=== PATIENT | female | born 1950 | race Caucasian/White ===

== ENCOUNTER → 2024-04-30 12:50 | Outpatient (REF) | payer MEDICARE, OTHER, SELFPAY | LOC: WDC 12:50 | PROVIDERS: ATTENDING PHYSICIAN Internal Medicine | DX: Z12.31 Encounter for screening mammogram for malignant neoplasm of breast (principal) | CPT/HCPCS: 77063; 77067 ==

== ENCOUNTER → 2025-04-28 14:20 | Outpatient (REF) | payer MEDICARE, OTHER, SELFPAY | LOC: WDC 14:20 | PROVIDERS: ATTENDING PHYSICIAN Obstetrics & Gynecology Gynecology; FAMILY PHYSICIAN Internal Medicine | DX: Z12.31 Encounter for screening mammogram for malignant neoplasm of breast (principal) | CPT/HCPCS: 77063; 77067 ==

== ENCOUNTER 2025-07-27 07:10 | Emergency (ER) | payer MEDICARE, OTHER, SELFPAY ==
[2025-07-27 07:11] VITALS: BP 218/102
[2025-07-27 07:24] VITALS: BMI 31.5
--- NOTE | 2025-07-27 07:48 | ED.GENMED ---
History of Present Illness
General
Chief Complaint: Facial Problem
Source: patient
Exam Limitations: none
Time Seen by Provider: 07/27/25 07:17
History of Present Illness
History of Present Illness:
74-year-old female not anticoagulated fell down the steps today. She was wearing glasses at the time and the glasses broke but part of her glasses are still stuck in her face. She does not think she lost conscious. She notes bilateral shoulder
and right thigh pain as well. She denies any significant neck back or chest pain. No other complaints at this time
Past History
Past History
ED Past Medical History: GERD, HTN and Hypercholesterolemia
ED Past Surgical History: None
Social History
Tobacco: Non-smoker
Personal:
Living: with family
Phy Exam
Physical Exam
Physical Exam:
General: Well-appearing female no acute respiratory distress
HEENT normal cephalic ragged laceration right lateral eyebrow with foreign body in the wound laceration measures about 3 cm in total length. Pupils equal round react to light no hyphema extraocular motions intact
Heart: Regular rate and rhythm
Lungs: Clear no wheeze
Musculoskeletal exam: Patient is slightly tender to bilateral shoulders and right anterior thigh.
Neurologic exam: Alert and oriented conversing appropriately
Course
Orders/Labs/Results
Orders:
Orders
07/27/25 07:30
CT Head W/o Iv Contrast Urgent
Comment:
Reason For Exam: fall
Cervical Spine wo Contrast CT [CT Cervical Spine W/o Iv Contr] Urgent
Comment:
Reason For Exam: fall
07/27/25 07:47
CR Femur - Right Min 2 Vw Urgent
Comment:
Reason For Exam: fall
CR Shoulder, Trauma - Left Urgent
Comment:
Reason For Exam: fall
CR Shoulder, Trauma - Right Urgent
Comment:
Reason For Exam: fall
07/27/25 09:14
CR Ribs-right 3 Vw W/pa Chest* Urgent
Comment:
Reason For Exam: fall
Vital Signs
Initial and Last Documented VS:
Initial Vital Signs
Temp Pulse Resp BP Pulse Ox
98.1 F 63 16 218/102 97
07/27/25 07:11 07/27/25 07:11 07/27/25 07:11 07/27/25 07:11 07/27/25 07:11
Last Documented Vital Signs
Temp Pulse Resp BP Pulse Ox
98.1 F 64 15 187/70 98
07/27/25 07:11 07/27/25 10:05 07/27/25 10:05 07/27/25 10:05 07/27/25 10:05
MDM/Problems Addressed
Differential Diagnosis Includes:
Mechanical fall down steps. Embedded piece of her glasses frame into the right eyebrow. This was removed after the skin was anesthetized with 1% lidocaine with epinephrine. The wound was then irrigated and closed with 5-0 Prolene sutures. A
total of 7 sutures were required to close the skin. Given the trauma and the fall we will order CT of head and cervical spine as well as x-rays of both shoulders and right femur.
*Pulse Oximetry
SaO2: 97
Oxygen Mode of Delivery: Room air
Patient hypoxic: no
*Critical Care Note
Total Time (30-74mins, 75-104mins- exclusive of procedures): Not Applicable
Update Note
Update Note:
CT of head and cervical spine x-ray both shoulders right femur and right ribs all were reviewed personally and are negative for acute fractures. Patient reassured. Recommended open or Tylenol for pain. She is to be removed in 5 to 7 days. Stable
for discharge
ED Attending Note
-
Portions of this chart may have been created with voice recognition software.� Occasional wrong word or��sound alike� substitutions may have occurred due to the inherent limitations of voice recognition software.
Discharge Plan
Departure
Patient Disposition: Home (Routine Discharge)
Date of Disposition: 07/27/25
Time of Disposition: 10:11
Patient with high blood pressure during this ER visit?: No
Discharge Problem:
Laceration
Instructions: Laceration Repair With Stitches (DC)
Referrals:
Nate Hess MD [Family Provider, Internal Medicine]
Activity Restrictions/Additional Instructions:
You may take ibuprofen or Tylenol for pain. Ice to the sore spots. Have sutures removed in 5 to 7 days.
Interventions
Interventions:
*Risk Screen - Suicide Last Done: 07/27/25 07:11
*General Assessment Last Done: 07/27/25 07:24
*Neglect/Abuse Screening Last Done: 07/27/25 07:11
*ED- Fall Risk Assessment Last Done: 07/27/25 07:24
*ED COVID-19 Vaccine History Last Done: 07/27/25 07:24
*ED Influenza Vaccine History Last Done: 07/27/25 07:24
ED- Neurological Assessment Last Done: 07/27/25 07:24
ED-Skin Assessment Last Done: 07/27/25 07:28
Discharge Date and Time
Print Language: EGYPTIAN
[2025-07-27 08:51] VITALS: BP 189/86
[2025-07-27 09:17] VITALS: BP 200/79
[2025-07-27 10:05] VITALS: BP 187/70
== END 2025-07-27 10:29 | disposition home or self-care (01) ==
LOC: EMR 07:10
PROVIDERS: EMERGENCY PHYSICIAN Emergency Medicine; FAMILY PHYSICIAN Internal Medicine
DX: S01.121A Laceration with foreign body of right eyelid and periocular area, initial encounter (principal); W25.XXXA Contact with sharp glass, initial encounter; M25.512 Pain in left shoulder; M25.511 Pain in right shoulder; M79.651 Pain in right thigh; W10.9XXA Fall (on) (from) unspecified stairs and steps, initial encounter; E78.00 Pure hypercholesterolemia, unspecified; I10 Essential (primary) hypertension
CPT/HCPCS: 12052; 99284; 70450; 71101; 72125; 73030; 73552